=== PATIENT | male | born 2000 | race African-American/Black ===

== ENCOUNTER 2019-02-25 18:27 | Emergency (ER) | payer OTHER ==
--- NOTE | 2019-02-25 18:36 | PDOC ---
Rapid Medical Evaluation Chief Complaint: Pain Time Seen by Provider: 02/25/19 18:32 Medical Evaluation: Allergies Allergy/AdvReac Type Severity Reaction Status Date / Time No Known Allergies Allergy Verified 02/25/19 18:32 02/25/19 18:33 I have performed a brief in-person evaluation of this patient. The patient presents with a chief complaint of: left hand injury, punched metal door Pertinent physical exam findings: left hand pain and swelling to thumb abd 2,3 metacarpal I have ordered the following: left hand The patient will proceed to the ED for further evaluation. Discharge Disposition - Diagnosis Hand pain, left - Referrals - Patient Instructions - Post Discharge Activity
[2019-02-25 18:39] VITALS: BP 104/68; PULSE 79; TEMP 98.5; BMI 22.1
--- NOTE | 2019-02-25 19:04 | PDOC ---
History of Present Illness - General Chief Complaint: Pain Stated Complaint: POSSIBLE THREE BROKEN FINGERS/L.HAND Time Seen by Provider: 02/25/19 18:32 History Source: Patient Exam Limitations: Clinical Condition - History of Present Illness Initial Comments: 02/25/19 19:14 Patient with no PMhx present with complains of pain and swelling to dorsal aspect of left hand on thumb side s/p punching a glass yesterday. Patient report pain to left thumb and proximal index . Denies tingling or numbing sensation. Occurred: reports: yesterday Past History - Past Medical History Allergies/Adverse Reactions: Allergies Allergy/AdvReac Type Severity Reaction Status Date / Time No Known Allergies Allergy Verified 02/25/19 18:32 Home Medications: Ambulatory Orders Ibuprofen 800 mg PO Q8H PRN #20 tablet 02/25/19 Asthma: Yes COPD: No Psychiatric Problems: Yes (Anxiety) - Suicide/Smoking/Psychosocial Hx Smoking History: Current every day smoker Number of Cigarettes Smoked Daily: 0 Information on smoking cessation initiated: Yes Hx Alcohol Use: No Drug/Substance Use Hx: Yes Review of Systems - Review of Systems Able to Perform ROS?: Yes Is the patient limited Colombian proficient: No Constitutional: No: Malaise, Weakness HEENTM: No: Symptoms Reported Respiratory: No: Symptoms reported Cardiac (ROS): No: Symptoms Reported Musculoskeletal: Yes: Symptoms Reported, See HPI, Joint Swelling (left hand), Muscle Pain (left hand ). No: Muscle Weakness, Joint Stiffness Integumentary: No: Symptoms Reported, Bruising, Change in Color Neurological: No: Numbness, Paresthesia, Tingling All Other Systems: Reviewed and Negative *Physical Exam - Vital Signs Last Vital Signs Temp Pulse Resp BP Pulse Ox 98.5 F 79 20 104/68 98 02/25/19 18:33 02/25/19 18:33 02/25/19 18:33 02/25/19 18:33 02/25/19 18:33 - Physical Exam Comments: 02/25/19 19:04 GENERAL: Well developed, well nourished. Awake and alert. No acute distress. CARDIOVASCULAR: Regular rate and rhythm. No murmurs, rubs, or gallops. PULMONARY: No evidence of respiratory distress. MUSCULOSKELETAL : moderate tenderness over dorsal aspect of MCP and proximal phalange of left thumb and proximal phalange of left index finger. moderate TTP over thenar muscle of left hand. Mild swelling over dorsal of left hand on thumb side. FROM of wrist and hands SKIN: Warm and dry. Normal capillary refill. small tiny well healing superficial lacerations to Knuckle of left thumb and index fingers NEUROLOGICAL: Alert, awake, appropriate. No motor deficits in the lower extremities. Gait is normal without ataxia. PSYCHIATRIC: Cooperative. Good eye contact. Appropriate mood and affect. General Appearance: Yes: Nourished, Appropriately Dressed, Mild Distress Medical Decision Making - Medical Decision Making 02/25/19 19:17 Patient with no PMhx present with complains of pain and swelling to dorsal aspect of left hand on thumb side s/p punching a glass yesterday. Patient report pain to left thumb and proximal index . Denies tingling or numbing sensation. Exam significant for mild swelling over to no muscle and MCP of left thumb and proximal phalange of left thumb and index finger. Free range of motion of thumb and wrist. No overlapping of fingers when making fist. x-ray of left hand shows no acute fracture or dislocation. Symptoms likely hand sprain. Ibuprofen 800 mg by mouth ordered for pain. Left hand wrapped with Fito bandage. Patient is stable for discharge to take Motrin as needed for pain and advised to do hot compresses as needed for pain and swelling with orthopedist follow-up as needed *DC/Admit/Observation/Transfer Diagnosis at time of Disposition: Hand pain, left Contusion of left hand including fingers Qualifiers: Encounter type: initial encounter Qualified Code(s): S60.222A - Contusion of left hand, initial encounter - Discharge Dispostion Disposition: HOME Condition at time of disposition: Stable Decision to Admit order: No - Prescriptions Prescriptions: Ibuprofen 800 mg PO Q8H PRN #20 tablet PRN Reason: pain - Referrals Referrals: Julio Cesar Ramirez MD [Staff Physician] - - Patient Instructions Printed Discharge Instructions: Contusion, DI for Contusion Additional Instructions: X-ray of left hand shows no acute fracture or dislocation. The symptoms likely hand sprain. Take prescribed medication as needed for pain. Apply hot compresses to hand 2-3 times a day for 5-10 minutes as needed for pain and swelling to use Fito bandage to help with - Post Discharge Activity Forms/Work/School Notes: Back to Work
[2019-02-25] MEDS ORDERED: IBUPROFEN 400 MG TABLET (FP) PO ONE (19:11)
[2019-02-25] MEDS ORDERED: IBUPROFEN 600 MG TABLET (FP) PO ONE (19:33)
== END 2019-02-25 19:36 | disposition home or self-care (01) ==
LOC: JERFT 18:27
DX: S60.222A Contusion of left hand, initial encounter (principal); W22.8XXA Striking against or struck by other objects, initial encounter; Y93.89 Activity, other specified; Y92.89 Other specified places as the place of occurrence of the external cause; Y99.8 Other external cause status
CPT/HCPCS: 73130-TC-LT-FY; 99281-25